=== PATIENT | male | born 1945 | race Two or more races ===

== ENCOUNTER → 2017-07-04 | Outpatient (CLI) | payer MEDICARE ==
[2017-07-04 08:57] LABS: PATH.CAST-FLAG NOT PRESENT; SPERM-FLAG NOT PRESENT; SRC-FLAG NOT PRESENT; XTAL-FLAG NOT PRESENT; YLC-FLAG NOT PRESENT
[2017-07-04 08:58] LABS: BLOOD UREA NITROGEN 20 mg/dL (7-18)
[2017-07-04 09:08] LABS: ASPARTATE AMINO TRANSFERASE 16 U/L (15-37); TOTAL IRON BINDING CAPACITY 387 mcg/dL (250-450); TRANSFERRIN 263 mg/dL (200-360)
== END | disposition home or self-care (01) ==
LOC: LAB 07:59
PROVIDERS: ATTEND Nurse Practitioner Primary Care
DX: Z00.01 Encounter for general adult medical examination with abnormal findings (principal); Z13.220 Encounter for screening for lipoid disorders; Z12.11 Encounter for screening for malignant neoplasm of colon; Z12.5 Encounter for screening for malignant neoplasm of prostate; E78.5 Hyperlipidemia, unspecified; R79.89 Other specified abnormal findings of blood chemistry; R53.83 Other fatigue; M10.9 Gout, unspecified; R01.1 Cardiac murmur, unspecified; Z72.0 Tobacco use
CPT/HCPCS: 36415; 80053; 80061; 81001; 82248; 82306; 82607; 82728; 82746; 83036; 83540; 83550; 83735; 84153; 84425; 84443; 84466; 84550; 85025; 86141; G0103

== ENCOUNTER 2021-07-08 15:42 | Emergency (ER) | payer MEDICARE ==
[~2021-07-08] VITALS: Ht 170.2 cm; Wt 60.8 kg
--- NOTE | 2021-07-08 16:10 | NUR ---
PT PRESENTS FOR C/O FALLING OUT OF BED LAST NIGHT, C/O PAIN ON LEFT NECK AND SHOULDER, DENIES LOC. PLACED ON VITALS MONITORS, FALL PRECAUTIONS IN PLACE, CALL LIGHT PLACED WITHIN REACH.
--- NOTE | 2021-07-08 18:56 | NUR ---
PT RESTING IN NAD.
[2021-07-08 19:34] VITALS: BP 134/69
== END 2021-07-08 19:41 | disposition home or self-care (01) ==
LOC: ED 16:11
DX: S16.1XXA Strain of muscle, fascia and tendon at neck level, initial encounter (principal); S46.912A Strain of unspecified muscle, fascia and tendon at shoulder and upper arm level, left arm, initial encounter; I10 Essential (primary) hypertension; W06.XXXA Fall from bed, initial encounter; Y93.89 Activity, other specified; Y92.009 Unspecified place in unspecified non-institutional (private) residence as the place of occurrence of the external cause; Y99.8 Other external cause status
CPT/HCPCS: 70450; 72125; 99285